=== PATIENT | female | born 1930 | race Caucasian/White ===

== ENCOUNTER 2021-08-11 11:21 | Inpatient (IN) | payer BC ==
[~2021-08-11] VITALS: Ht 172.7 cm; Wt 76.4 kg
[2021-08-11 11:52] LABS: BASOPHILS % (AUTO) 0.5 % (0-1); EOSINOPHILS % (AUTO) 0.6 % (0-6); HEMOGLOBIN 13.8 g/dl (12.0-16.0); LYMPHOCYTES # (AUTO) 1.1 X10'3 (1.1-4.8); LYMPHOCYTES % (AUTO) 21.1 % (21-51); MEAN CORPUSCULAR HEMOGLOBIN 27.6 PG (27.0-31.0); MEAN CORPUSCULAR HGB CONC 32.9 g/dL (33.0-36.5); MEAN PLATELET VOLUME 7.9 FL (7.4-10.4); MONOCYTES # (AUTO) 0.6 X10'3 (0-0.9); MONOCYTES % (AUTO) 10.1 % (2-12); NEUTROPHILS # (AUTO) 3.7 X10'3 (1.8-7.7); NEUTROPHILS % (AUTO) 67.7 % (42-75); PLATELET COUNT 273 X10'3 (140-440); RED BLOOD COUNT 4.99 X10'6 (4.20-5.60); RED CELL DISTRIBUTION WIDTH 14.7 % (11.5-14.5); WHITE BLOOD COUNT 5.4 X10'3 (4.5-11.0)
[2021-08-11 12:23] LABS: ALANINE AMINOTRANSFERASE 25 U/L (12-78); ALBUMIN 3.9 G/DL (3.4-5.0); ALBUMIN/GLOBULIN RATIO 1.1 (1.1-1.5); ALKALINE PHOSPHATASE 77 IU/L (46-116); ANION GAP 9 (8-16); ASPARTATE AMINO TRANSFERASE 24 U/L (10-37); BILIRUBIN,TOTAL 0.9 MG/DL (0.1-1.0); BLOOD UREA NITROGEN 18 MG/DL (7-18); BUN/CREATININE RATIO 28.6 (6.6-38.0); CALCIUM 9.2 MG/DL (8.5-10.1); CHLORIDE 105 MMOL/L (99-107); CREATININE 0.63 MG/DL (0.40-0.90); GLUCOSE 112 MG/DL (70-104); POTASSIUM 4.3 MMOL/L (3.5-5.1); SODIUM 142 MMOL/L (135-145); TOTAL CARBON DIOXIDE 28.3 MMOL/L (24-32); TOTAL PROTEIN 7.4 G/DL (6.4-8.2); eGFR 89 ML/MIN
[2021-08-11] MEDS ORDERED: AMLO5TAB16 PO (15:53)
[2021-08-11] MEDS ORDERED: METO-384 PO (15:53)
[2021-08-11] MEDS ORDERED: HYDROcodone/acetaminophen 5mg/325mg tablet PO PRN (16:55)
[2021-08-11] MEDS ORDERED: acetaminophen 650mg rectal suppository RC PRN (16:55)
[2021-08-11] MEDS ORDERED: bisacodyl 10mg suppository rectal RC PRN (16:55)
[2021-08-11] MEDS ORDERED: ondansetron/PF 4mg/2ml inj IV PRN (16:55)
[2021-08-11] MEDS ORDERED: acetaminophen 325mg tablet PO PRN ×2 (16:55)
[2021-08-11] MEDS ORDERED: magnesium Cl slow-release 64mg tablet PO PRN (16:55)
[2021-08-11] MEDS ORDERED: morphine 2 MG/ML inj. syringe IV PRN ×2 (16:55)
[2021-08-11] MEDS ORDERED: mag hydrox/Alum hydrox/simeth 30ml oral suspension PO PRN (16:55)
[2021-08-11] MEDS ORDERED: HYDROcodone/acetaminophen 10/325mg tab PO PRN (16:55)
[2021-08-11] MEDS ORDERED: magnesium 4gm in 100ml NS 100 ML IV PRN (16:55)
[2021-08-11] MEDS ORDERED: potassium Cl 20 mEq SR tablet PO PRN ×2 (16:55)
[2021-08-11] MEDS ORDERED: magnesium 2GM in 50ml NS 50 ML IV PRN (16:55)
[2021-08-11] MEDS ORDERED: potassium CL 10mEq/100ml bag 100 ML IV PRN (16:55)
[2021-08-11] MEDS ORDERED: diphenhydrAMINE 25mg capsule PO PRN (16:55)
[2021-08-11] MEDS ORDERED: magnesium hydroxide 30ml (MOM) UD suspension PO PRN (16:55)
[2021-08-11 17:31] LABS: CHOL/HDL RATIO 3.2 (0.00-4.99); CHOLESTEROL 229 MG/DL (0-200); HDL CHOLESTEROL 71 MG/DL (35-60); LDL CHOLESTEROL 132 MG/DL (50-100); TRIGLYCERIDES 105 MG/DL (20-135)
[2021-08-11 17:55] LABS: HEMOGLOBIN A1C 6.4 % (4.5-6.2)
[2021-08-11 20:00] VITALS: BP_SYST 138; BP_SYST 164; BP_DIAS 62
[2021-08-11] MEDS: K and/or MAG REPLACEMENT MC SCH (20:00)
[2021-08-11] MEDS: normal saline 1000ml 1,000 ML IV SCH (21:02)
[2021-08-11] MEDS: heparin, porcine 5000 units/ml vial SQ SCH (21:05)
[2021-08-11] MEDS: docusate sod 100mg capsule PO SCH (21:05)
[2021-08-11] MEDS: amLODIPine 5mg tablet PO SCH (21:07)
[2021-08-11 22:20] VITALS: BP 143/65
[2021-08-12 02:00] VITALS: BP 148/64
[2021-08-12] MEDS: normal saline 1000ml 1,000 ML IV SCH (06:15)
[2021-08-12 06:16] LABS: HEMATOCRIT 37.5 % (35.0-45.0); HEMOGLOBIN 12.4 g/dl (12.0-16.0); MEAN CORPUSCULAR HGB CONC 33.1 g/dL (33.0-36.5); MONOCYTES # (AUTO) 0.9 X10'3 (0-0.9); RED BLOOD COUNT 4.46 X10'6 (4.20-5.60); WHITE BLOOD COUNT 6.5 X10'3 (4.5-11.0)
[2021-08-12 06:19] LABS: BASOPHILS % (AUTO) 0.6 % (0-1); EOSINOPHILS % (AUTO) 0.8 % (0-6); LYMPHOCYTES # (AUTO) 1.2 X10'3 (1.1-4.8); MEAN CORPUSCULAR HEMOGLOBIN 27.8 PG (27.0-31.0); MEAN CORPUSCULAR VOLUME 84.1 FL (78-98); MEAN PLATELET VOLUME 8.6 FL (7.4-10.4); MONOCYTES % (AUTO) 14.1 % (2-12); NEUTROPHILS # (AUTO) 4.3 X10'3 (1.8-7.7); NEUTROPHILS % (AUTO) 66.5 % (42-75); PLATELET COUNT 239 X10'3 (140-440); RED CELL DISTRIBUTION WIDTH 14.6 % (11.5-14.5)
[2021-08-12 06:44] LABS: ALANINE AMINOTRANSFERASE 20 U/L (12-78); ALBUMIN 3.3 G/DL (3.4-5.0); ALBUMIN/GLOBULIN RATIO 1.1 (1.1-1.5); ALKALINE PHOSPHATASE 66 IU/L (46-116); ANION GAP 11 (8-16); ASPARTATE AMINO TRANSFERASE 18 U/L (10-37); BILIRUBIN,TOTAL 1.6 MG/DL (0.1-1.0); BLOOD UREA NITROGEN 13 MG/DL (7-18); CALCIUM 8.6 MG/DL (8.5-10.1); CHLORIDE 104 MMOL/L (99-107); CHOL/HDL RATIO 2.7 (0.00-4.99); CHOLESTEROL 182 MG/DL (0-200); CREATININE 0.59 MG/DL (0.40-0.90); GLUCOSE 109 MG/DL (70-104); HDL CHOLESTEROL 67 MG/DL (35-60); LDL CHOLESTEROL 108 MG/DL (50-100); PHOSPHORUS 3.1 MG/DL (2.3-4.5); POTASSIUM 3.6 MMOL/L (3.5-5.1); SODIUM 140 MMOL/L (135-145); TOTAL CARBON DIOXIDE 25.1 MMOL/L (24-32); TOTAL PROTEIN 6.3 G/DL (6.4-8.2); TRIGLYCERIDES 72 MG/DL (20-135); eGFR > 90 ML/MIN
[2021-08-12 08:00] VITALS: BP_SYST 145; BP_SYST 151; BP_DIAS 65; BP_DIAS 91
[2021-08-12] MEDS: K and/or MAG REPLACEMENT MC SCH ×2 (08:00→17:20)
[2021-08-12] MEDS: heparin, porcine 5000 units/ml vial SQ SCH (08:00)
[2021-08-12] MEDS ORDERED: atorvastatin 10mg tablet PO SCH (08:00)
[2021-08-12] MEDS: amLODIPine 5mg tablet PO SCH (08:00)
[2021-08-12] MEDS ORDERED: aspirin 325mg tablet, delayed-release (Ecotrin) PO SCH (08:00)
[2021-08-12] MEDS: docusate sod 100mg capsule PO SCH (08:00)
--- NOTE | 2021-08-12 12:09 | NUR ---
Age screen: Pt admitted w/ syncope and hx prediabetes per EMR. Pt current wt 76.4kg unscaled and no scaled wt hx. Per [employer] documentation pt recommended Regular diet and thin liquids. Pt is currently on a heart healthy diet w/ 100% PO first meal. Pending physical assessment. Will continue to follow for nutrition intervention needs this admit. Addendum: 08/12/21 at 1209 by Casandra Gross In[address] Maker RD Amended: Links added. Addendum: 08/12/21 at [address] I have reviewed and agree with note by Innersole MakerParviz Parson RD
--- NOTE | 2021-08-12 15:05 | NUR ---
Message: [id number] Shanae Tejada took off her Tele box and got dressed ready to go. Do you plan to discharge her? Lorna LUCIA ext [phone]
[2021-08-12] MEDS ORDERED: ASPI-1071 PO (16:01)
[2021-08-12] MEDS ORDERED: ATOR10TA PO (16:01)
[2021-08-12 16:55] VITALS: BP 137/87
--- NOTE | 2021-08-12 17:51 | NUR ---
Pt has been discharged at 1720. Pt had education on syncope. All her question have been answered. IV and telemonitor has been removed. All belongings were collected and Pt received. Camera on floor was not working did not get a new picture of wound. PT has wound picture in paper chart.
== END 2021-08-12 17:43 | disposition home or self-care (01) | DRG 312 ==
LOC: ER 11:23 → ED HOLD 16:56 → PCU 3S 19:49
PROVIDERS: ADMIT Family Medicine; ATTEND Family Medicine
DX: R55 Syncope and collapse (principal); I48.11 Longstanding persistent atrial fibrillation; E78.5 Hyperlipidemia, unspecified; I10 Essential (primary) hypertension; Z60.2 Problems related to living alone; R73.03 Prediabetes; Z79.82 Long term (current) use of aspirin; Z79.899 Other long term (current) drug therapy; Z82.49 Family history of ischemic heart disease and other diseases of the circulatory system; Z85.038 Personal history of other malignant neoplasm of large intestine; Z87.442 Personal history of urinary calculi; Z90.49 Acquired absence of other specified parts of digestive tract; Z90.710 Acquired absence of both cervix and uterus
CPT/HCPCS: 36415; 70450; 70544; 70551; 71045; 80053; 80061; 83036; 83735; 83880; 84100; 84484; 85025; 85651; 87081; 92508; 92616; 93005; 93306; 93880; 99285; G0378; J1644; J7030